=== PATIENT | male | born 1990 | race Caucasian/White ===

== ENCOUNTER 2023-07-17 17:07 | Emergency (ER) | payer OTHER, SELFPAY ==
[2023-07-17 17:22] VITALS: BP 132/85; PULSE 85; RESP 16; TEMP 37.2; O2SAT 99
--- NOTE | 2023-07-17 17:47 | ED.URI ---
HPI - URI/Sore Throat General Chief Complaint: Upper Respiratory Infection Stated Complaint: cough,bodyaches Time Seen by Provider: 07/17/23 17:47 Source: patient, RN notes reviewed and old records reviewed Mode of arrival: ambulatory Limitations: no limitations History of Present Illness HPI Narrative: 32-year-old male presents to the [facility] with intermittent x1 month body aches and a cough. Patient reports has been going on off for approximately 1 month has tried [id number] cold medications. Treatments prior to arrival: cold medicine Related Data Allergies Allergy/AdvReac Type Severity Reaction Status Date / Time No Known Allergies Allergy Unverified 07/17/23 17:22 Review of Systems Review of Systems: All systems reviewed & are unremarkable except as noted in HPI and below Constitutional: Constitutional: Reports as per HPI and Reports body ache(s) Eyes: Eyes: Reports no additional eye complaints ENT: Reports system reviewed and no additional complaints, except as documented Cardiovascular: Cardiovascular: Reports no additional cardiovascular complaints, Denies chest pain and Denies dyspnea Respiratory: Respiratory: Reports as per HPI, Reports chest congestion, Reports cough and Denies dyspnea Gastrointestinal: Gastrointestinal: Reports no additional gastrointestinal complaints, Denies abdominal pain, Denies nausea and Denies vomiting Musculoskeletal: Musculoskeletal: Reports no additional musculoskeletal complaints Integumentary/Breasts: Skin/Breast: Reports system reviewed and no additional complaints, except as docu Neurologic: Reports system reviewed and no additional complaints, except as documented Psychiatric: Psychiatric: Reports no additional psychiatric complaints Allergic/Immunologic: Allergic/Immunologic: Reports no additional allergic/immunologic complaints PMFSH Past Medical History Medical History (Updated 07/17/23 @ 18:02 by Susana Elam APRN) Patient denies medical problems Social History Social History (Updated 07/17/23 @ 18:02 by Susana Elam APRN) Smoking packs per day: 1 Smoking cigarettes per day: 20.0 Smoking status: Current every day smoker Tobacco type: cigarettes Gender identity (if verbalized by the patient): Male Comments At the time of my signature, I reviewed and agree with the nursing past medical, surgical, social, and family history. There is no relevant family history pertinent to the patient complaint. Exam Const: General: cooperative, healthy appearing, comfortable, no acute distress, well developed, alert and well nourished Nutritional Appearance: well nourished Orientation/consciousness: patient oriented x3 Limitations: no limitations HENMT: Head: normal to inspection Ears: hearing grossly normal bilaterally, external ears normal, TM's normal bilaterally, EAC's normal, mastoids normal and no periauricular adenopathy Face/Nose/Sinus: Normal external nose present, Normal nares present, No nasal polyps present, Normal nasal mucous membranes and turbinates present, normal facial exam, sinuses nontender and face symmetric Face and sinus: normal facial exam, sinuses nontender and face symmetric Throat: posterior oropharynx normal, tonsils normal, uvula midline and no uvular edema Eyes: General: appearance normal, both eyes and all related structures Alignment and Position: alignment normal Periorbital: periorbital findings normal Pupils: Equal, round and reactive pupils present EOM: EOMs intact bilaterally Neck: Neck: normal visual inspection, full ROM, no lymphadenopathy and no meningeal signs Chest: Chest palpation & inspection: normal inspection of the chest Resp: Effort & Inspection: normal respiratory effort and able to speak in complete sentences Auscultation: no crackles, no rales, no rhonchi and wheezes expiratory wheezes, left lower and right lower Cardio: Rate: regular rate Rhythm: regular rhythm Skin: General skin exam: no
[2023-07-17 17:53] VITALS: BP 132/85; PULSE 85; RESP 16; TEMP 37.2; O2SAT 99
== END 2023-07-17 18:00 | disposition home or self-care (01) ==
PROVIDERS: Emergency Provider Nurse Practitioner
DX: J40 Bronchitis, not specified as acute or chronic (principal); F17.210 Nicotine dependence, cigarettes, uncomplicated
CPT/HCPCS: 99213; G0463

== ENCOUNTER 2024-09-25 15:48 | Emergency (ER) | payer OTHER, SELFPAY ==
--- NOTE | 2024-09-25 15:50 | ED_ITS ---
HPI - Wound/Laceration General Chief Complaint: Wound/Laceration Stated Complaint: Left Hand Laceration Time Seen by Provider: 09/25/24 15:50 Source: patient Mode of arrival: ambulatory Limitations: no limitations History of Present Illness HPI narrative: Jai is a 33-year-old male patient presenting to the clinic today with complaints of a left hand finger laceration prior to arrival. He reports he cut it on a clean razor blade. Bleeding is controlled. Tetanus is not up today. Patient is declining tetanus in the clinic today. Related Data Allergies Allergy/AdvReac Type Severity Reaction Status Date / Time No Known Allergies Allergy Unverified 09/25/24 15:52 Review of Systems Review of Systems: Pertinent positives per HPI. Patient denies any fever, chills, rash, headache, visual changes, dizziness, cough, runny nose, sore throat, shortness of breath, chest pain, palpitations, nausea, vomiting, diarrhea, constipation, abdominal pain, or any urinary issues. PMFSH Past Medical History Medical History Patient denies medical problems Social History Social History Smoking packs per day: 1 Smoking cigarettes per day: 20.0 Smoking status: Current every day smoker Tobacco type: cigarettes Gender identity (if verbalized by the patient): Male Comments At the time of my signature, I reviewed and agree with the nursing past medical, surgical, social, and family history. There is no relevant family history pertinent to the patient complaint. Exam Narrative: General: Well-developed, well nourished, in no apparent distress Head: Normocephalic, atraumatic. Cardio: Regular rate and rhythm, s1 and s2 normal, no murmur appreciated. Resp: Clear to auscultation bilaterally, no rhonchi, rales, wheezing or rubs. Integumentary: [place], warm, and dry, 1 cm laceration to the left lateral 5th finger, bleeding controlled Course Course Emergency Course: Portions of this record may have been created with voice recognition software. Level of Care: Express Care Visit Vital Signs Vital signs: Vital Signs Temperature 36.8 C 09/25/24 15:58 Pulse Rate 71 09/25/24 15:58 Respiratory Rate 14 09/25/24 15:58 Blood Pressure 128/72 09/25/24 15:58 Pulse Oximetry 98 09/25/24 15:58 Oxygen Delivery Room Air 09/25/24 15:58 Temperature 36.8 C 09/25/24 15:58 Pulse Rate 71 09/25/24 15:58 Respiratory Rate 14 09/25/24 15:58 Blood Pressure 128/72 09/25/24 15:58 Pulse Oximetry 98 09/25/24 15:58 Oxygen Delivery Room Air 09/25/24 15:58 Vital signs reviewed MDM - Wound/Laceration MDM Narrative Medical decision making narrative: At the time of visit patient is resting comfortably on the exam table. Patient appears to be nontoxic. Complaints of a left hand finger laceration prior to arrival. He reports he cut it on a clean razor blade. Bleeding is controlled. Tetanus is not up today. Patient is declining tetanus in the clinic today. 1 c m laceration to the left lateral 5th finger. Bleeding is controlled. Procedures: Laceration repair was performed in the clinic today. Three interrupted sutures were placed bringing the wound edges well approximate. Patient tolerated well Plan: Patient has left 5th finger laceration. 3 interrupted suture placed. Dressing applied. Declined tetanus-risk and benefits explained. Supportive measures were discussed with the patient and they voiced understanding discharge instructions and agrees to treatment plan. Return precautions reviewed Differential Diagnosis Differential diagnosis: Likely laceration, abscess, abrasion and avulsion of skin Discharge Plan Discharge Clinical Impression: Laceration of finger Qualifiers: Encounter type: initial encounter Finger: little finger Damage to nail status: without damage Foreign body presence: without foreign body Laterality: left Qualified Code(s): S61.217A - Laceration without foreign body of left little finger without damage to nail, initial encounter Patient Disposition: Home Condition: Stable Instructions: Antibiotic Form, Finger Laceration (ED) Additional Instructions: You declined tetanus shot in the clinic today. Leave bandage on for 24 hours then may remove and apply band aide covering as needed. Keep wound clean and dry Wash wound daily with soap and water then pat dry Do not submerge her hand in dirty water Skin sutures out in 7 days. Watch for signs and symptoms of infection- redness, streaking, swelling, purulent discharge, or increase in pain. Follow up with your PCP for suture removal or return to the Express care. Patient Language: [place] Follow-up/Referrals: UNKNOWN,DOCTOR [Non-Staff] - Time of Disposition: 16:28 Quality NIHSS Nursing Documentation ED NIHSS nursing documentation: reviewed/agree
[2024-09-25 15:58] VITALS: BP 128/72; PULSE 71; RESP 14; TEMP 36.8; O2SAT 98
[2024-09-25] MEDS: LIDOCAINE 1% LOCAL INJ 2 ML AMPUL INFILTRATE (16:20)
== END 2024-09-25 16:33 | disposition home or self-care (01) ==
PROVIDERS: Emergency Provider Nurse Practitioner Family
DX: S61.217A Laceration without foreign body of left little finger without damage to nail, initial encounter (principal); F17.210 Nicotine dependence, cigarettes, uncomplicated; W45.8XXA Other foreign body or object entering through skin, initial encounter
CPT/HCPCS: 99212; G0463; J2003